=== PATIENT | male | born 2005 | race Two or more races ===

== ENCOUNTER 2025-01-17 23:01 | Emergency (ER) | payer MEDICAID, OTHER ==
[~2025-01-17] VITALS: Ht 175.3 cm; Wt 68.5 kg
[2025-01-17] MEDS ORDERED: CEPH500C PO (23:12)
[2025-01-17] MEDS ORDERED: ACET500T58 PO (23:12)
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
[2025-01-17 23:15] VITALS: BP 129/78; PULSE 89; RESP 14; TEMP 98.8; O2SAT 100
== END 2025-01-17 23:21 | disposition home or self-care (01) ==
LOC: ER 23:01
DX: S40.811A Abrasion of right upper arm, initial encounter (principal); S80.811A Abrasion, right lower leg, initial encounter; X58.XXXA Exposure to other specified factors, initial encounter; Y93.89 Activity, other specified; Y92.89 Other specified places as the place of occurrence of the external cause; Y99.8 Other external cause status